=== PATIENT | male | born 1970 | race Caucasian/White ===

== ENCOUNTER → 2023-05-09 | Outpatient (CLI) | payer MEDICAID ==
[2023-05-09] VITALS (14 sets, daily range): BP systolic 105–142; BP diastolic 62–82; PULSE 60–74; TEMP 97.9
[~2023-05-09] VITALS: Ht 177.8 cm; Wt 61.8 kg
[~2023-05-09] MED LIST: CELEBREX 1100 MG/CAP PO; MS CONTIN 330 MG/TAB PO; NEURONTIN800 MG/TAB PO; OXYCONTIN 10MG10 MG PO; ZANAFLEX 4MG TAB4 MG PO; fentaNYL 50 MCG/ML 2 ML VIAL IV SCH
--- NOTE | 2023-05-09 13:00 | NUR ---
Pt to ct per wheelchair. Pt positioned on ct table with left side down and tilted back. Monitor applied and O2 on at 2l/nc.
--- NOTE | 2023-05-09 13:32 | NUR ---
Specimen obtained by Dr Chairez and placed in formalin. Specimen labeled.
== END ==
LOC: COL.RAD 12:00
DX: C01 Malignant neoplasm of base of tongue (principal)
CPT/HCPCS: J3010